=== PATIENT | female | born 1970 | race Caucasian/White ===

== ENCOUNTER → 2022-11-27 | Outpatient (CLI) | payer OTHER, SELFPAY ==
--- NOTE | 2022-11-27 14:20 | EMB_PTH ---
PATIENT: MARYLIN OLIVEIRA LOC: [facility] U#:[id number] AGE/SX: 52/F ROOM: RE11/27/[address]: Dr. Mauricio Patel MD : 1970 BED: DIS: 11/27/2022 SPEC #: [id number] RECD: 11/27/22 16:13 STATUS: REMY HARPRenetta #: [id number] ASHLEY: 11/27/22 14:[address]: Mauricio Patel DEPT: SURGICAL PATHOLOGY RECD BY: Kade Alicea Tissues: Endometrium, NOS Procedures: Surgery Specimen Level IV HEADER OPERATION: Endometrial biopsy PRE-OP DIAGNOSIS: Abnormal uterine bleeding TISSUE SUBMITTED: Endometrial biopsy MICROSCOPIC DIAGNOSIS Endometrium, biopsy: Secretory endometrium. 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 AM:masha 12/02/2022 MICROSCOPIC DESCRIPTION Slides are reviewed. GROSS DESCRIPTION Received in fixative is one container labeled with the patient's name and designated endometrial biopsy. The specimen consists of multiple fragments of hemorrhagic soft tissue that in aggregate measure 3 x 2.5 x 0.3 cm. The specimen is totally submitted in one cassette. / SJ:masha 11/28/2022 TC:5 CPT: 46360
[2022-11-27 16:19] LABS: Absolute Lymphocyte Count 1.04 X10^3/uL (0.83-4.51); Absolute Neutrophil Count 6.7 X10^3/uL (2.0-7.7); Basophil# 0.03 X10^3/uL; Basophil% 0.4 % (0-1); Eosinophil# 0.01 X10^3/uL; Eosinophils% 0.1 % (0-5); Hematocrit 39.6 % (37-47); Hemoglobin 13.2 g/dL (12.0-15.0); Lymphocyte # 1.04 X10^3/ul (0.83-4.51); Lymphocyte % 12.3 % (19-41); Mean Corp Hgb Conc 33.3 g/dL (32-36); Mean Platelet Vol. 10.1 fl (6.2-12.0); Monocyte# 0.63 X10^3/uL; Monocyte% 7.4 % (0-10); NRBC Flagged by Analyzer 0 % (0-5); Neutrophil # 6.71 X10^3/uL (2.7-7.7); Neutrophil % 79.3 % (47-70); Platelet Count 296 K/mm3 (150-450); RBC Distribution Width CV 12.3 % (11.6-14.6); RBC Distribution Width SD 40.3 fl (35.1-43.9); White Blood Count 8.5 K/mm3 (4.4-11.0)
[2022-11-27 16:41] LABS: Estradiol 70.7 pg/mL; Follicle Stimulating Hormone 6.9 mIU/mL; Luteinizing Hormone 0.8 mIU/mL; T4 Free Direct 1.06 ng/dL (0.76-1.46); Thyroid Stim Hormone (TSH) 1.92 uIU/mL (0.358-3.74)
== END | disposition home or self-care (01) ==
PROVIDERS: Visit Provider Obstetrics & Gynecology
DX: N93.9 Abnormal uterine and vaginal bleeding, unspecified (principal)
CPT/HCPCS: 36415; 82670; 83001; 83002; 84439; 84443; 85025; 88305

== ENCOUNTER 2022-12-22 05:36 | Day surgery (SDC) | payer SELFPAY, OTHER ==
--- NOTE | 2022-12-16 10:00 | EKG12_ITS ---
Test Reason : PRE OP Blood Pressure : / mmHG Vent. Rate : 103 BPM Atrial Rate : 103 BPM P-R Int : 152 ms QRS Dur : 064 ms QT Int : 370 ms P-R-T Axes : 076 040 238 degrees QTc Int : 484 ms Sinus tachycardia Nonspecific ST and T wave abnormality Abnormal ECG Confirmed by CLEMENTINE DELGADO, ALICE ([id number]), photograph editor AMI DEMARCO ([id number]) on 12/17/2022 9:50:05 AM Referred By: Mauricio Patel Confirmed By:ALICE SPRING MD
[2022-12-16 11:31] LABS: Hematocrit 39.7 % (37-47); Hemoglobin 12.4 g/dL (12.0-15.0); Mean Corp Hgb Conc 31.2 g/dL (32-36); Mean Corpuscular Hgb 28.8 pg (27.0-32.0); Mean Corpuscular Volume 92.1 fL (81-99); Mean Platelet Vol. 10.2 fl (6.2-12.0); Platelet Count 240 K/mm3 (150-450); RBC Distribution Width CV 12.4 % (11.6-14.6); RBC Distribution Width SD 41.8 fl (35.1-43.9); Red Blood Count 4.31 M/mm3 (4.2-5.4); White Blood Count 6.5 K/mm3 (4.4-11.0)
[2022-12-16 11:52] LABS: Magnesium 2.5 mg/dL (1.6-2.6)
[2022-12-22] VITALS (11 sets, daily range): BP systolic 101–122; BP diastolic 55–72; PULSE 57–97; RESP 16; TEMP 36.2–37.4; O2SAT 97–100; BMI 25.1
[2022-12-22 06:15] LABS: Internal QC Validated? YES +Cl - CLEAR BKGD; Pregnancy, Urine Negative Negative
[2022-12-22 06:35] LABS: Bedside Glucose 86 mg/dL (74-106)
[2022-12-22] MEDS: Acetaminophen 500 MG Tablet 1000 MG PO ×2 (06:41→12:52)
[2022-12-22] MEDS: Gabapentin 600 MG Tablet PO (06:41)
--- NOTE | 2022-12-22 06:50 | HP.PCM.OB_ITS ---
History and Physical Date of Admission: 12/22/22 Chief complaint: Abnormal uterine bleeding History present illness: 52-year-old scheduled for robotic assisted total laparoscopic hysterectomy bilateral salpingectomy and cystoscopy for abnormal uterine bleeding. No medical changes since last seen. All questions answered and consent signed. Obstetric history: G5, P4 with a history of 4 vaginal deliveries Past medical history: None Medications: Medroxyprogesterone Allergies: No known drug allergies Past surgical history: None Social history: Denies smoking, alcohol, drug use Family history: Denies history DVT or PE Review of systems: Besides above pertinent positives a full review of systems was performed and found to be negative Physical exam: Vitals: Blood pressure 122/72 pulse 97 respiratory rate 16 temperature 98.8 ?F SPO2 100% on room air General: Normal-appearing no acute distress HEENT: Normocephalic/atraumatic no cervical lymphadenopathy Cardiac/respiratory: No use accessory muscles, nonlabored breathing Abdomen: Soft, nontender, nondistended Extremities: No peripheral edema normal peripheral pulses Psych: Normal affect normal demeanor nonpressured speech Labs: Urine test negative, blood glucose 86 Assessment plan: 52-year-old with abnormal uterine bleeding for robotic assisted total laparoscop ic hysterectomy bilateral salpingectomy. Patient understands risk of the procedure include but are not limited to visceral or vascular injury, prolonged hospitalization, blood loss need for transfusion, reoperation. Patient state understanding wish to proceed. All questions were answered and consent was signed.
[2022-12-22] MEDS: Lactated Ringers 1,000 ML 40 ML IV (06:53)
[2022-12-22] MEDS: Magnesium 1 GM over 15 mins IV (06:54)
[2022-12-22] MEDS: Cefazolin 2 GM in 0.9% Normal Saline 100 ML IV (07:27)
--- NOTE | 2022-12-22 07:30 | HYST_PTH ---
PATIENT: MARYLIN OLIVEIRA [place] [facility] [place][id number] AGE/SX: 52/F ROOM: RE12/22/[address]: Dr. Mauricio Patel MD : 1970 BED: DIS: 12/22/2022 SPEC #: [id number] RECD: 12/22/22 10:56 STATUS: REMY WHITMORE #: [id number] ASHLEY: 12/22/22 07:[address]: Mauricio Patel DEPT: SURGICAL PATHOLOGY RECD BY: Shanice Cuadra ENTERED: 12/22/22 12:00 SP TYPE: HYSTERECT OTHR DR: Dr. Patrick Myers MD Tissues: Uterus, NOS Procedures: Surgery Specimen Level V HEADER OPERATION: ERAS, lap robotic TLH, bilateral salpingectomy, cysto PRE-OP DIAGNOSIS: Abnormal uterine bleeding TISSUE SUBMITTED: Uterus, bilateral fallopian tubes MICROSCOPIC DIAGNOSIS Uterus, hysterectomy: Cervix ? squamous metaplasia, nabothian cysts and mild chronic inflammation. Endometrium ? transition endometrium. Myometrium ? leiomyomas. Fallopian tubes ? benign paratubal cysts. AM:masha 12/23/2022 COMMENT Case has been reviewed in consultation with Dr. White who concurs with the above diagnosis. IDC:SJ MICROSCOPIC DESCRIPTION Slides are reviewed. GROSS DESCRIPTION Received in fixative is one container labeled with the patient's name and designated uterus, bilateral fallopian tubes. The specimen consists of a hysterectomy specimen consisting of uterus with cervix and detached bilateral fallopian tubes. The uterus with cervix weighs 170 gm and measures 10.5 x 9 x 5.5 cm. Two subserosal nodules are noted. The serosal surface is ferguson, glistening. The ectocervical mucosa is unremarkable. The external os is oval in contour. The endocervical canal measures 3.5 cm in length and the endocervical mucosa is ferguson, glistening and unremarkable. Sections of the uterine wall reveal multiple intramural and subserosal nodular masses. The largest mass measures 1.5 cm in greatest dimension. The uterine wall measures up to 3 cm in thickness. The fallopian tubes are not identified as right or left and each measure 4.5 cm in length and 0.5 cm in diameter. The fimbrial ends are identified. Sections reveal unremarked cut surfaces. One fallopian tube also shows a paratubal cyst measuring 0.8 cm in greatest dimension. Be[employer]per sections are submitted in nine cassettes as follows: 1??anterior cervix, 2 - posterior cervix, 3 & 4 - anterior uterine wall, 5 & 6 - posterior uterine wall, 7??intramural and subserosal nodular masses, 8 - one fallopian tube, 9 - second fallopian tube and paratubal cyst. / CHERI:masha 12/22/2022 TC:1 CPT: 44871
[2022-12-22] MEDS: Ondansetron 4 MG/2 ML Vial IV (08:56)
--- NOTE | 2022-12-22 08:58 | DCINST_ITS ---
Discharge Instructions Diet Discharge Diet: No restrictions Activity Discharge Activity: Return to Normal Activity, May Drive, May Shower and - (No tub baths for 2) May resume sexual activity in: 4-6 weeks Lifting Restrictions: No lifting over 25 pounds for 2 to 3 weeks Dressing / Incision Call your doctor if your incision/area has: Continuous Slow Oozing and Foul Smelling Discharge Call your doctor if you observe: Fever of 101 or Higher, Shortness of breath and Chest pain Follow Up Care Please Follow Up With: Mauricio Patel MD When: 2 weeks postoperatively Test Results: Test results from this visit will be discussed in further detail at your follow- up appointment, if applicable. Discharge Plan Admission Attending Provider: Mauricio Patel Primary Care Provider: Patrick Myers Discharge Orders/Prescriptions Prescriptions: No Action multivitamin Tablet 1 tab PO DAILY medroxyprogesterone 10 mg tablet 40 mg PO BID Label Comments: TAKE 4 TABLETS BY MOUTH EVERY DAY Referrals / Follow Up: Patrick Myers MD [Primary Care Provider] - Disposition Disposition (needs filled in before D/C Order can be placed): Home, Self Care
--- NOTE | 2022-12-22 09:00 | PCM.OPRPT ---
Report of Operation Date of Procedure: 12/22/22 Pre-Operative Diagnosis: Abnormal uterine bleeding, leiomyoma Post-Operative Diagnosis: Abnormal uterine bleeding, leiomyomas Surgery/Procedure Performed:: Robotic assisted total laparoscopic hysterectomy bilateral salpingectomy, cystoscopy Description of Surgical Findings:: Surgeon: Mauricio Patel MD Anesthesia: General EBL: 50 cc Urine output: 600 cc IV fluids: 1000 cc Complications: None Specimen: Bilateral fallopian tubes uterus and cervix Findings: Posterior fibroids 2 cm in size x2. Otherwise normal uterus, tubes, and ovaries. Post procedure cystoscopy with bilateral ureteral jets and no pathology noted. Consent: Patient with abnormal uterine bleeding and leiomyomas elects for robotic assisted total laparoscopic hysterectomy bilateral salpingectomy and cystoscopy. Patient understands risk of the procedure include but are not limited to visceral or vascular injury, prolonged hospitalization, blood loss need for transfusion, reoperation. Patient state understanding and wished to proceed. All questions were answered and consent was signed. Procedure: Patient was brought back to the OR where general anesthesia was found to be adequate. 2 g of Ancef were given for infection prophylaxis. Patient was prepared and draped in a dorsolithotomy position with yellowfin stirrups. A weighted speculum was placed in the posterior aspect of the vagina and cervical dilators were used to dilate the cervix. Uterine manipulator was placed. Varies needle was inserted at the umbilicus x2, water safety test passed x2. Abdomen could not be insufflated. 5 mm trocar was inserted at Dias's point and Optiview was performed. Laparoscope was inserted and abdomen was insufflated, above findings were noted. 8 mm midline supraumbilical robotic trocar was inserted under direct visualization. Bilateral lower quadrant 8 mm robotic trochars were inserted under direct visualization. 5 mm trocar at Dias's point was removed and 8 mm air seal was placed. Robot was docked. Bilateral ureters were visualized and noted to be out of the operative field. Using a vessel sealer and monopolar scissors the left round ligament was identified cut and cauterized, anterior and posterior portions of the broad ligament were dissected. Bladder flap was developed. Left fallopian tube was identified to the fimbria and the mesosalpinx was cut and cauterized, fallopian tube was transected and sent to pathology. Left utero-ovarian ligament was identified cut and cauterized. Posterior portion of broad ligament was dissected and left uterine vessels were skeletonized. Left uterine vessels were cut and cauterized, lateralized beyond the level of the colpotomy cup. Right round ligament was identified cut and cauterized. Anterior and posterior portions of the broad ligament were dissected. Bladder flap was fully developed beyond the level of the colpotomy cup. Right fallopian tube was identified out to the fimbria and the mesosalpinx was cut and cauterized, fallopian tube was transected and sent to pathology. Right utero-ovarian ligament was identified cut and cauterized. Posterior portion of broad ligament fully developed. Right uterine vessels were skeletonized. Right uterine vessels were cut and cauterized lateralized beyond the level the colpotomy cup. Circumferential colpotomy was made. Cervix and uterus were removed from the abdominal cavity and sent to pathology. Good hemostasis was noted. Using a needle public transit trolley driver and V-Loc Vicryl the colpotomy was closed in a continuous running fashion. Good hemostasis was noted, needle was removed from the abdomen. Good hemostasis was noted. Post procedure cystoscopy was performed and above findings were noted, bilateral ureteral jets with no pathology noted. Víctor was placed over the colpotomy and operative field. Good hemostasis was noted. Abdomen was desufflated and trochars were removed under direct visualization. Good hemostasis was noted. Trocar sites were closed in a subcutaneous fashion. Good hemostasis was noted. All counts were correct x2. Patient the tolerated procedure well and was brought to recovery in a stable condition.
[2022-12-22] MEDS: Ketorolac 30 MG/ML Syringe IV (11:07)
--- NOTE | 2022-12-22 13:50 | SUR.PHASEII ---
Patient has met criteria for discharge. iv removed. patient is comfortable and denies nausea. awaiting ride with their .
== END 2022-12-22 15:25 | disposition home or self-care (01) ==
LOC: SDC 05:40 → AC 05:41
PROVIDERS: Anesthesiology; PCP Family Medicine; Referring Provider Obstetrics & Gynecology; Visit Provider Obstetrics & Gynecology
PROC: 0UT90ZZ Resection of Uterus, Open Approach (ICD-10-PCS; CPT 58571; principal; 2022-12-22 07:10)
DX: D25.9 Leiomyoma of uterus, unspecified (principal); N88.8 Other specified noninflammatory disorders of cervix uteri; N87.9 Dysplasia of cervix uteri, unspecified; N83.8 Other noninflammatory disorders of ovary, fallopian tube and broad ligament; G25.81 Restless legs syndrome; Z79.899 Other long term (current) drug therapy
CPT/HCPCS: 58571; 00840; 36415; 81025; 82962; 83735; 85027; 86850; 86900; 86901; 88307; 93005; J7120; J2405; J3475